=== PATIENT | female | born 1945 | race African-American/Black ===

== ENCOUNTER 2019-03-15 16:20 | Emergency (ER) | payer OTHER ==
[~2019-03-15] VITALS: Ht 165.1 cm; Wt 91.0 kg
[2019-03-15 17:18] LABS: BASOPHILS % 0.9 % (0.0-2.0); EOSINOPHILS % 6.2 % (0.0-5.0); HEMATOCRIT. 36.6 % (36.0-48.0); HEMOGLOBIN. 11.8 g/dL (12.0-16.0); LYMPHOCYTES % 40.7 % (20.0-50.0); MEAN CORPUSCULAR HEMOGLOBIN 28.7 pg (28.0-32.0); MEAN CORPUSCULAR VOLUME 89.5 fL (81.0-99.0); MEAN PLATELET VOLUME 8.1 fl (7.4-10.4); MONOCYTES % 7.4 % (2.0-8.0); NEUTROPHILS % 44.8 % (40.0-76.0); PLATELET 349 x1000/uL (130-400); RED CELL DISTRIBUTION WIDTH 15.2 % (11.6-14.6)
[2019-03-15 17:19] LABS: CHLORIDE 107 mEq/L (98-107)
[2019-03-15 17:46] LABS: CLARITY URINE CLOUDY (CLEAR); COLOR URINE YELLOW (YELLOW); KETONES URINE NEGATIVE (NEGATIVE); LEUKOCYTE ESTERASE URINE NEGATIVE (NEGATIVE); NITRITE URINE NEGATIVE (NEGATIVE); OCCULT BLOOD URINE NEGATIVE (NEGATIVE); PROTEIN URINE TRACE (NEGATIVE); SPECIFIC GRAVITY URINE 1.019 (1.005-1.030); UROBILINOGEN URINE 0.2 E.U./dL (0.2-1.0)
[2019-03-15] MEDS ORDERED: SODIUM CHLORIDE 0.9% 1,000 ML IV NR (18:10)
[2019-03-15 19:58] VITALS: BP 168/77
== END 2019-03-15 20:03 | disposition short-term general hospital (02) ==
LOC: ER 16:20 → CANBEDREQ 21:01
DX: R55 Syncope and collapse (principal); E11.9 Type 2 diabetes mellitus without complications; I10 Essential (primary) hypertension; E78.00 Pure hypercholesterolemia, unspecified; Z88.2 Allergy status to sulfonamides
CPT/HCPCS: 36415; 71045; 78582; 80053; 81003; 83880; 84484; 85025; 85379; 93005; 99285; A9540; A9558

== ENCOUNTER 2021-12-21 13:37 | Inpatient (IN) | payer OTHER, MEDICARE ==
[2021-12-21] VITALS (20 sets, daily range): BP systolic 119–194; BP diastolic 31–74
[~2021-12-21] VITALS: Ht 165.1 cm; Wt 98.9 kg
[2021-12-21] MEDS ORDERED: ONDANSETRON HCL 4MG/2ML INJ IV STA (13:38)
[2021-12-21] MEDS ORDERED: NICARDIPINE 40MG/200ML PREMIX 200 ML IV STA (14:06)
[2021-12-21] MEDS ORDERED: LEVETIRACETAM 500MG PREMIX 100 ML IV ONE (14:15)
[2021-12-21] MEDS ORDERED: DEXAMETHASONE 10 MG/ML VIAL IV ONE (14:15)
[2021-12-21] MEDS ORDERED: IOHEXOL-350 100 ML BOTTLE ONE (14:21)
[2021-12-21] MEDS ORDERED: MANNITOL 12.5G (25%) VIAL 50ML IV ONE (14:30)
[2021-12-21] MEDS ORDERED: ETOMIDATE 2MG/ML 10ML VIAL IV ONE (14:45)
[2021-12-21] MEDS ORDERED: FENTANYL CITRATE/PF 50MCG/ML 2ML VIAL IV ONE (14:45)
[2021-12-21] MEDS ORDERED: SUCCINYLCHOLINE CHLORIDE 200MG/10ML IV ONE (14:45)
[2021-12-21] MEDS ORDERED: PROPOFOL 10MG/ML 100ML 100 ML IV SCH (15:00)
[2021-12-21] MEDS ORDERED: FENTANYL 2500MCG/250ML PMX 250 ML IV PRN ×2 (15:00→15:30)
[2021-12-21] MEDS ORDERED: GENTAMICIN SULF 40MG/ML 2ML VIAL ONE (15:28)
[2021-12-21] MEDS ORDERED: LIDOCAINE HCL/EPINEPHRINE 1%-EPI 1:100,000 30 ML VIAL INFIL ONE ×2 (15:28→15:29)
[2021-12-21] MEDS ORDERED: THROMBIN (BOVINE) 5000 UNITS/VIAL TOP ONE (15:29)
[2021-12-21] MEDS ORDERED: BACITRACIN 15GM TUBE TOP ONE (15:29)
[2021-12-21] MEDS ORDERED: MANNITOL 20% 0 ML IV ONE (15:30)
[2021-12-21 15:33] LABS: BASOPHILS % 0.8 % (0.0-2.0); EOSINOPHILS % 0.9 % (0.0-5.0); HEMATOCRIT. 40.8 % (36.0-48.0); HEMOGLOBIN. 13.6 g/dL (12.0-16.0); LYMPHOCYTES % 21.9 % (20.0-50.0); MEAN CORPUSCULAR HEMOGLOBIN 29.3 pg (28.0-32.0); MEAN PLATELET VOLUME 8.2 fl (7.4-10.4); NEUTROPHILS % 72.4 % (40.0-76.0); PLATELET 286 x1000/uL (130-400); RED BLOOD CELL COUNT 4.63 mill/uL (4.2-5.4); RED CELL DISTRIBUTION WIDTH 14.7 % (11.6-14.6)
[2021-12-21 15:41] LABS: CHLORIDE 103 mEq/L (98-107)
[2021-12-21 15:45] LABS: ETHANOL BLOOD < 10 mg/dL
[2021-12-21] MEDS ORDERED: CEFAZOLIN SODIUM 1000MG/VIAL ONE (16:18)
[2021-12-21] MEDS ORDERED: DEXAMETHASONE 4MG/ML 1ML VIAL ONE (16:18)
[2021-12-21] MEDS ORDERED: HYDRALAZINE 20MG/ML VIAL ONE ×5 (16:24→18:07)
[2021-12-21] MEDS ORDERED: LABETALOL HCL 5MG/ML VIAL 20ML IV ONE (16:27)
[2021-12-21] MEDS ORDERED: HYDROMORPHONE HCL/PF 2MG/ML (OR) ONE ×2 (16:28→17:47)
[2021-12-21] MEDS ORDERED: ROCURONIUM BROMIDE 10MG/ML VIAL 5ML IV ONE (16:41)
[2021-12-21] MEDS ORDERED: ALBUMIN HUMAN 25GM/100ML (25%) IV ONE (16:52)
[2021-12-21] MEDS ORDERED: CALCIUM CHLORIDE 1GM/10ML SYR IV ONE (17:08)
[2021-12-21] MEDS ORDERED: NICARDIPINE 100 MG in SODIUM CHLORIDE 0.9% 60 ML IV PRN (17:30)
[2021-12-21] MEDS ORDERED: MEPERIDINE HCL/PF 25MG/ML CPJ IV PRN (18:00)
[2021-12-21] MEDS ORDERED: LABETALOL 5MG/ML SYR 20 MG/4 ML SYRINGE IV PRN (18:00)
[2021-12-21] MEDS ORDERED: HYDROMORPHONE HCL/PF 2MG/ML CPJ IV PRN (18:00)
[2021-12-21] MEDS ORDERED: ONDANSETRON HCL 4MG/2ML INJ IV PRN ×2 (18:00→22:00)
[2021-12-21] MEDS ORDERED: NALOXONE HCL 0.4MG/ML VIAL IV PRN (18:15)
[2021-12-21] MEDS: NICARDIPINE 100 MG in SODIUM CHLORIDE 0.9% 60 ML IV PRN (20:39)
[2021-12-21] MEDS: DEXT 5%/LACTATED RINGERS 1,000 ML IV SCH (20:40)
[2021-12-21] MEDS ORDERED: LEVETIRACETAM 500 MG in SODIUM CHLORIDE 0.9% 100 ML IV SCH (20:45)
[2021-12-21] MEDS ORDERED: CEFAZOLIN 1000MG PREMIX 50 ML IV SCH (21:00)
[2021-12-21] MEDS: PROPOFOL 10MG/ML 100ML 100 ML IV PRN (21:22)
[2021-12-21] MEDS: MORPHINE SULFATE 4 MG/ML CPJ (NOT FOR IM USE) IV PRN (21:45)
[2021-12-21 21:54] LABS: BG BASE EXCESS -4.8 mmol/L (-2.0-2.0); BG CARBOXYHEMOGLOBIN 0.3 % (0.5-1.5); BG DEOXYHEMOGLOBIN 0.9 % (0.0-5.0); BG FRACTION INSPIRED OXYGEN 100; BG HCO3 ACT 18.1 mmol/L (22.0-26.0); BG METHEMOGLOBIN 0.3 % (0.0-1.5); BG OXYGEN SATURATION 99.1 % (92.0-98.5); BG OXYHEMOGLOBIN 98.5 % (94.0-97.0); BG PCO2 26.7 mmHg (35.0-45.0); BG PH 7.448 (7.350-7.450); BG PO2 186.8 mmHg (75.0-100.0); BG SAMPLE SITE ALINE; BG TOTAL HEMOGLOBIN 10.5 g/dL (12.0-18.0); BG VENT MODE VENT - AC
[2021-12-21] MEDS ORDERED: ACETAMINOPHEN 650MG SUPP PR PRN (22:00)
[2021-12-21] MEDS ORDERED: DEXT 5%/0.45% NACL 1000ML 1,000 ML IV SCH (22:00)
[2021-12-21] MEDS ORDERED: DEXTROSE 50% WATER 50ML SYRINGE IV PRN ×2 (22:15→22:45)
[2021-12-21] MEDS: LEVETIRACETAM 500MG PREMIX 100 ML IV SCH (23:03)
[2021-12-21] MEDS: BLOOD SUGAR DIAGNOSTIC STRIP TEST SCH (23:22)
[2021-12-21] MEDS: INSULIN LISPRO 100 UNITS/ML SUBCUT SCH (23:25)
[2021-12-22] VITALS (103 sets, daily range): BP systolic 63–193; BP diastolic 29–82
[2021-12-22] MEDS: PROPOFOL 10MG/ML 100ML 100 ML IV PRN ×6 (00:56→21:31)
[2021-12-22] MEDS: NICARDIPINE 100 MG in SODIUM CHLORIDE 0.9% 60 ML IV PRN ×3 (01:00→19:19)
[2021-12-22] MEDS: MORPHINE SULFATE 4 MG/ML CPJ (NOT FOR IM USE) IV PRN ×3 (01:27→19:17)
[2021-12-22] MEDS: BLOOD SUGAR DIAGNOSTIC STRIP TEST SCH ×3 (05:36→17:58)
[2021-12-22] MEDS: CEFAZOLIN 1000MG PREMIX 50 ML IV SCH ×3 (05:41→21:30)
[2021-12-22] MEDS: INSULIN LISPRO 100 UNITS/ML SUBCUT SCH ×2 (05:42→11:25)
[2021-12-22 05:55] LABS: BASOPHILS % 0.1 % (0.0-2.0); HEMATOCRIT. 29.8 % (36.0-48.0); HEMOGLOBIN. 9.9 g/dL (12.0-16.0); LYMPHOCYTES % 10.3 % (20.0-50.0); MEAN CORPUSCULAR HEMOGLOBIN 29.4 pg (28.0-32.0); MEAN CORPUSCULAR VOLUME 88.2 fL (81.0-99.0); MEAN PLATELET VOLUME 8.3 fl (7.4-10.4); MONOCYTES % 2.9 % (2.0-8.0); NEUTROPHILS % 86.7 % (40.0-76.0); PLATELET 227 x1000/uL (130-400); RED BLOOD CELL COUNT 3.38 mill/uL (4.2-5.4); RED CELL DISTRIBUTION WIDTH 14.2 % (11.6-14.6)
[2021-12-22 06:25] LABS: CHLORIDE 104 mEq/L (98-107)
[2021-12-22] MEDS: LEVETIRACETAM 500MG PREMIX 100 ML IV SCH (08:42)
[2021-12-22] MEDS: DEXAMETHASONE 4MG/ML 1ML VIAL IV SCH ×3 (08:43→18:02)
[2021-12-22 08:55] LABS: BG BASE EXCESS -3.7 mmol/L (-2.0-2.0); BG CARBOXYHEMOGLOBIN 0.3 % (0.5-1.5); BG DEOXYHEMOGLOBIN 1.8 % (0.0-5.0); BG FRACTION INSPIRED OXYGEN 60; BG HCO3 ACT 19.8 mmol/L (22.0-26.0); BG METHEMOGLOBIN 0.3 % (0.0-1.5); BG OXYGEN SATURATION 98.2 % (92.0-98.5); BG OXYHEMOGLOBIN 97.6 % (94.0-97.0); BG PCO2 30.8 mmHg (35.0-45.0); BG PH 7.427 (7.350-7.450); BG PO2 115.1 mmHg (75.0-100.0); BG SAMPLE SITE RIGHT RADIAL; BG TOTAL HEMOGLOBIN 10.2 g/dL (12.0-18.0); BG VENT MODE VENT - AC
[2021-12-22] MEDS ORDERED: PANTOPRAZOLE SODIUM 40 MG/VIAL IV SCH (10:00)
[2021-12-22] MEDS: PANTOPRAZOLE SODIUM 40 MG/VIAL IV SCH (10:00)
[2021-12-22] MEDS: DEXT 5%/LACTATED RINGERS 1,000 ML IV SCH ×2 (10:10→16:30)
[2021-12-22] MEDS ORDERED: DEXTROSE 50% WATER 50ML SYRINGE IV PRN (12:45)
[2021-12-22] MEDS: INSULIN GLARGINE 100 UNITS/ML SUBCUT SCH (12:48)
[2021-12-22] MEDS ORDERED: LIDOCAINE HCL/PF 1% 10 MG/ML 5ML VIAL ONE (13:58)
[2021-12-22] MEDS ORDERED: PHENYTOIN SODIUM 500 MG in SODIUM CHLORIDE 0.9% 50 ML IV NR (14:00)
[2021-12-22 16:18] LABS: CLARITY URINE CLOUDY (CLEAR); COLOR URINE YELLOW (YELLOW); KETONES URINE NEGATIVE (NEGATIVE); LEUKOCYTE ESTERASE URINE 1+ (NEGATIVE); NITRITE URINE NEGATIVE (NEGATIVE); OCCULT BLOOD URINE NEGATIVE (NEGATIVE); PROTEIN URINE TRACE (NEGATIVE); UROBILINOGEN URINE 0.2 E.U./dL (0.2-1.0)
[2021-12-22] MEDS ORDERED: INSULIN LISPRO 100 UNITS/ML SUBCUT SCH ×2 (17:00)
[2021-12-22] MEDS ORDERED: HYDRALAZINE 10 MG XX SCH (17:15)
[2021-12-22 19:00] LABS: *AMPHETAMINES SCREEN URINE NEGATIVE (NEGATIVE); *BENZODIAZEPINES SCREEN URINE NEGATIVE (NEGATIVE); CANNABINOID URINE SCREEN NEGATIVE (NEGATIVE); OPIATES URINE SCREEN PRESUMTIVE POSITIVE (NEGATIVE); PHENCYCLIDINE URINE SCREEN NEGATIVE (NEGATIVE)
[2021-12-22 19:01] LABS: *COCAINE SCREEN URINE NEGATIVE (NEGATIVE); METHADONE URINE SCREEN NEGATIVE (NEGATIVE)
[2021-12-22] MEDS ORDERED: LEVETIRACETAM 500 MG in SODIUM CHLORIDE 0.9% 100 ML IV SCH (21:00)
[2021-12-22] MEDS ORDERED: LEVETIRACETAM 500MG PREMIX 100 ML IV SCH (21:00)
[2021-12-22 21:04] LABS: PROTHROMBIN TIME 10.5 sec (9.6-11.0)
[2021-12-22] MEDS: LEVETIRACETAM 1000MG PREMIX 100 ML IV SCH (21:30)
[2021-12-22 21:33] LABS: *BARBITURATES SCREEN URINE NEGATIVE (NEGATIVE)
[2021-12-22] MEDS: PHENYTOIN SODIUM 1,000 MG in SODIUM CHLORIDE 0.9% 100 ML IV SCH (22:43)
[2021-12-23] VITALS (100 sets, daily range): BP systolic 60–183; BP diastolic 41–70
[2021-12-23] MEDS: BLOOD SUGAR DIAGNOSTIC STRIP TEST SCH ×4 (00:18→17:07)
[2021-12-23] MEDS: DEXAMETHASONE 4MG/ML 1ML VIAL IV SCH ×4 (00:22→17:25)
[2021-12-23] MEDS: INSULIN LISPRO 100 UNITS/ML SUBCUT SCH ×4 (00:23→17:26)
[2021-12-23] MEDS: PROPOFOL 10MG/ML 100ML 100 ML IV PRN ×7 (00:59→21:51)
[2021-12-23] MEDS: DEXT 5%/LACTATED RINGERS 1,000 ML IV SCH (04:23)
[2021-12-23 05:27] LABS: HEMATOCRIT. 23.2 % (36.0-48.0); HEMOGLOBIN. 7.6 g/dL (12.0-16.0); MEAN CORPUSCULAR HEMOGLOBIN 28.7 pg (28.0-32.0); MEAN CORPUSCULAR VOLUME 87.8 fL (81.0-99.0); MEAN PLATELET VOLUME 8.4 fl (7.4-10.4); PLATELET 188 x1000/uL (130-400); RED BLOOD CELL COUNT 2.64 mill/uL (4.2-5.4); RED CELL DISTRIBUTION WIDTH 14.2 % (11.6-14.6)
[2021-12-23] MEDS: CEFAZOLIN 1000MG PREMIX 50 ML IV SCH ×3 (05:37→21:52)
[2021-12-23 07:57] LABS: BG BASE EXCESS -7.9 mmol/L (-2.0-2.0); BG CARBOXYHEMOGLOBIN 0.3 % (0.5-1.5); BG DEOXYHEMOGLOBIN 3.2 % (0.0-5.0); BG HCO3 ACT 15.5 mmol/L (22.0-26.0); BG METHEMOGLOBIN 0.3 % (0.0-1.5); BG OXYGEN SATURATION 96.8 % (92.0-98.5); BG OXYHEMOGLOBIN 96.2 % (94.0-97.0); BG PCO2 24.5 mmHg (35.0-45.0); BG PH 7.418 (7.350-7.450); BG PO2 91.9 mmHg (75.0-100.0); BG SAMPLE SITE ALINE; BG TOTAL HEMOGLOBIN 8.5 g/dL (12.0-18.0); BG VENT MODE VENT - AC
[2021-12-23] MEDS: LEVETIRACETAM 1000MG PREMIX 100 ML IV SCH ×2 (08:20→21:50)
[2021-12-23] MEDS: PANTOPRAZOLE SODIUM 40 MG/VIAL IV SCH (08:20)
[2021-12-23 08:30] LABS: PLATELET ESTIMATE NORMAL
[2021-12-23] MEDS ORDERED: BISACODYL 10MG SUPP PR PRN (10:15)
[2021-12-23] MEDS: DEXT 5%/0.9% NACL 1,000 ML IV SCH ×2 (10:59→20:39)
[2021-12-23] MEDS: PHENYTOIN SODIUM 1,000 MG in SODIUM CHLORIDE 0.9% 100 ML IV SCH ×2 (10:59→22:44)
[2021-12-23] MEDS: INSULIN GLARGINE 100 UNITS/ML SUBCUT SCH (11:00)
[2021-12-23] MEDS: PIPERACILLIN/TAZOBACTAM 3.375 G in DEXTROSE 5% WATER 50 ML IV SCH ×2 (11:35→20:39)
[2021-12-23] MEDS ORDERED: MAGNESIUM 1 G PREMIX 100 ML IV NR (12:00)
[2021-12-24] VITALS (98 sets, daily range): BP systolic 108–179; BP diastolic 36–75
[2021-12-24] MEDS: DEXAMETHASONE 4MG/ML 1ML VIAL IV SCH ×5 (00:08→22:50)
[2021-12-24] MEDS: BLOOD SUGAR DIAGNOSTIC STRIP TEST SCH ×5 (00:08→23:07)
[2021-12-24] MEDS: INSULIN LISPRO 100 UNITS/ML SUBCUT SCH ×4 (00:08→17:56)
[2021-12-24] MEDS: PROPOFOL 10MG/ML 100ML 100 ML IV PRN ×4 (02:04→12:13)
[2021-12-24] MEDS: PIPERACILLIN/TAZOBACTAM 3.375 G in DEXTROSE 5% WATER 50 ML IV SCH ×3 (03:58→20:58)
[2021-12-24] MEDS: CEFAZOLIN 1000MG PREMIX 50 ML IV SCH ×3 (05:30→20:57)
[2021-12-24] MEDS: DEXT 5%/0.9% NACL 1,000 ML IV SCH ×2 (05:31→15:56)
[2021-12-24 05:37] LABS: HEMOGLOBIN. 9.9 g/dL (12.0-16.0); MEAN CORPUSCULAR VOLUME 88.2 fL (81.0-99.0); MEAN PLATELET VOLUME 8.6 fl (7.4-10.4); PLATELET 235 x1000/uL (130-400); RED CELL DISTRIBUTION WIDTH 14.5 % (11.6-14.6)
[2021-12-24 06:00] LABS: CHLORIDE 108 mEq/L (98-107)
[2021-12-24 06:08] LABS: PHOSPHORUS 5.2 mg/dL (2.5-4.9)
[2021-12-24] MEDS: MORPHINE SULFATE 4 MG/ML CPJ (NOT FOR IM USE) IV PRN ×2 (06:26→13:51)
[2021-12-24] MEDS: NICARDIPINE 100 MG in SODIUM CHLORIDE 0.9% 60 ML IV PRN ×2 (06:53→14:20)
[2021-12-24] MEDS: PANTOPRAZOLE SODIUM 40 MG/VIAL IV SCH (08:25)
[2021-12-24] MEDS: LEVETIRACETAM 1000MG PREMIX 100 ML IV SCH ×2 (08:25→20:58)
[2021-12-24 08:51] LABS: BG BASE EXCESS -8.7 mmol/L (-2.0-2.0); BG CARBOXYHEMOGLOBIN 0.1 % (0.5-1.5); BG DEOXYHEMOGLOBIN 5.2 % (0.0-5.0); BG FRACTION INSPIRED OXYGEN 30; BG HCO3 ACT 15.8 mmol/L (22.0-26.0); BG METHEMOGLOBIN 0.3 % (0.0-1.5); BG OXYGEN SATURATION 94.8 % (92.0-98.5); BG OXYHEMOGLOBIN 94.4 % (94.0-97.0); BG PCO2 29.3 mmHg (35.0-45.0); BG PO2 78.7 mmHg (75.0-100.0); BG SAMPLE SITE RIGHT RADIAL; BG TOTAL HEMOGLOBIN 10.2 g/dL (12.0-18.0); BG VENT MODE VENT - AC
[2021-12-24] MEDS: INSULIN GLARGINE 100 UNITS/ML SUBCUT SCH (11:04)
[2021-12-24] MEDS ORDERED: PROPOFOL 10MG/ML 100ML 100 ML IV PRN (13:30)
[2021-12-24] MEDS ORDERED: HYDRALAZINE HCL 25MG TABLET PO PRN (15:00)
[2021-12-24] MEDS: HYDRALAZINE 20MG/ML VIAL IV PRN ×2 (15:25→22:50)
[2021-12-24 15:44] LABS: PLATELET ESTIMATE NORMAL
[2021-12-24] MEDS ORDERED: FENTANYL CITRATE/PF 2,500 MCG in SODIUM CHLORIDE 0.9% 200 ML IV PRN (15:45)
[2021-12-24] MEDS: FENTANYL 2500MCG/250ML PMX 250 ML IV PRN (16:27)
[2021-12-25] VITALS (98 sets, daily range): BP systolic 103–185; BP diastolic 40–97
[2021-12-25] MEDS: NICARDIPINE 100 MG in SODIUM CHLORIDE 0.9% 60 ML IV PRN ×4 (00:33→18:05)
[2021-12-25] MEDS: PROPOFOL 10MG/ML 100ML 100 ML IV PRN ×5 (00:34→23:53)
[2021-12-25] MEDS: DEXT 5%/0.9% NACL 1,000 ML IV SCH ×2 (01:38→09:11)
[2021-12-25] MEDS: MORPHINE SULFATE 4 MG/ML CPJ (NOT FOR IM USE) IV PRN (02:45)
[2021-12-25] MEDS: PIPERACILLIN/TAZOBACTAM 3.375 G in DEXTROSE 5% WATER 50 ML IV SCH ×3 (05:19→21:53)
[2021-12-25] MEDS: CEFAZOLIN 1000MG PREMIX 50 ML IV SCH ×2 (05:20→14:11)
[2021-12-25] MEDS: BLOOD SUGAR DIAGNOSTIC STRIP TEST SCH ×4 (05:45→23:37)
[2021-12-25 06:01] LABS: HEMATOCRIT. 29.2 % (36.0-48.0); HEMOGLOBIN. 9.7 g/dL (12.0-16.0); MEAN CORPUSCULAR HEMOGLOBIN 29.1 pg (28.0-32.0); MEAN CORPUSCULAR VOLUME 87.8 fL (81.0-99.0); MEAN PLATELET VOLUME 8.3 fl (7.4-10.4); PLATELET 266 x1000/uL (130-400); RED BLOOD CELL COUNT 3.33 mill/uL (4.2-5.4); RED CELL DISTRIBUTION WIDTH 14.5 % (11.6-14.6)
[2021-12-25 06:07] LABS: PHOSPHORUS 5.1 mg/dL (2.5-4.9)
[2021-12-25] MEDS: INSULIN LISPRO 100 UNITS/ML SUBCUT SCH ×5 (06:07→23:47)
[2021-12-25 07:24] LABS: PLATELET ESTIMATE NORMAL
[2021-12-25] MEDS: LEVETIRACETAM 1000MG PREMIX 100 ML IV SCH ×2 (09:10→21:50)
[2021-12-25 09:11] LABS: BG BASE EXCESS -7.7 mmol/L (-2.0-2.0); BG CARBOXYHEMOGLOBIN 0.1 % (0.5-1.5); BG DEOXYHEMOGLOBIN 6.5 % (0.0-5.0); BG FRACTION INSPIRED OXYGEN 40; BG HCO3 ACT 17.5 mmol/L (22.0-26.0); BG METHEMOGLOBIN 0.3 % (0.0-1.5); BG OXYGEN SATURATION 93.5 % (92.0-98.5); BG OXYHEMOGLOBIN 93.1 % (94.0-97.0); BG PCO2 34.6 mmHg (35.0-45.0); BG PH 7.323 (7.350-7.450); BG PO2 75.7 mmHg (75.0-100.0); BG SAMPLE SITE LEFT RADIAL; BG TOTAL HEMOGLOBIN 9.5 g/dL (12.0-18.0); BG VENT MODE VENT - AC
[2021-12-25] MEDS: PANTOPRAZOLE SODIUM 40 MG/VIAL IV SCH (09:11)
[2021-12-25] MEDS: FENTANYL 2500MCG/250ML PMX 250 ML IV PRN (10:14)
[2021-12-25] MEDS: INSULIN GLARGINE 100 UNITS/ML SUBCUT SCH (10:40)
[2021-12-25] MEDS: CITRIC ACID/SODIUM CITRATE SOLN 30ML UDC NG SCH ×3 (10:40→17:57)
[2021-12-26] VITALS (78 sets, daily range): BP systolic 102–152; BP diastolic 46–63
[2021-12-26] MEDS ORDERED: FENTANYL CITRATE 2,500 MCG in SODIUM CHLORIDE 0.9% 200 ML IV PRN ×2
[2021-12-26] MEDS: HYDRALAZINE 20MG/ML VIAL IV PRN (00:39)
[2021-12-26] MEDS: NICARDIPINE 100 MG in SODIUM CHLORIDE 0.9% 60 ML IV PRN ×3 (02:29→18:05)
[2021-12-26] MEDS: BLOOD SUGAR DIAGNOSTIC STRIP TEST SCH ×3 (05:53→17:08)
[2021-12-26] MEDS: INSULIN LISPRO 100 UNITS/ML SUBCUT SCH ×3 (05:55→18:06)
[2021-12-26] MEDS: PROPOFOL 10MG/ML 100ML 100 ML IV PRN ×2 (05:55→09:55)
[2021-12-26] MEDS: PIPERACILLIN/TAZOBACTAM 3.375 G in DEXTROSE 5% WATER 50 ML IV SCH ×3 (05:57→21:00)
[2021-12-26 07:07] LABS: BASOPHILS % 0.2 % (0.0-2.0); EOSINOPHILS % 0.3 % (0.0-5.0); HEMATOCRIT. 28.2 % (36.0-48.0); HEMOGLOBIN. 9.4 g/dL (12.0-16.0); LYMPHOCYTES % 15.9 % (20.0-50.0); MEAN CORPUSCULAR HEMOGLOBIN 28.8 pg (28.0-32.0); MEAN CORPUSCULAR VOLUME 86.1 fL (81.0-99.0); MEAN PLATELET VOLUME 8.7 fl (7.4-10.4); MONOCYTES % 7.5 % (2.0-8.0); NEUTROPHILS % 76.1 % (40.0-76.0); PLATELET 279 x1000/uL (130-400); RED BLOOD CELL COUNT 3.27 mill/uL (4.2-5.4); RED CELL DISTRIBUTION WIDTH 14.3 % (11.6-14.6)
[2021-12-26 07:09] LABS: PHOSPHORUS 5.4 mg/dL (2.5-4.9)
[2021-12-26 07:47] LABS: BG BASE EXCESS -7.9 mmol/L (-2.0-2.0); BG CARBOXYHEMOGLOBIN 0.3 % (0.5-1.5); BG DEOXYHEMOGLOBIN 9.9 % (0.0-5.0); BG HCO3 ACT 17.4 mmol/L (22.0-26.0); BG METHEMOGLOBIN 0.3 % (0.0-1.5); BG OXYHEMOGLOBIN 89.5 % (94.0-97.0); BG PCO2 34.7 mmHg (35.0-45.0); BG PH 7.318 (7.350-7.450); BG PO2 64.1 mmHg (75.0-100.0); BG SAMPLE SITE LEFT RADIAL; BG VENT MODE VENT - AC
[2021-12-26] MEDS: CITRIC ACID/SODIUM CITRATE SOLN 30ML UDC NG SCH ×3 (08:43→16:28)
[2021-12-26] MEDS: PANTOPRAZOLE SODIUM 40 MG/VIAL IV SCH (08:43)
[2021-12-26] MEDS: HYDRALAZINE HCL 25MG TABLET NG SCH ×3 (08:44→21:00)
[2021-12-26] MEDS: AMLODIPINE 5MG TABLET NG SCH ×2 (08:44→20:49)
[2021-12-26] MEDS: LEVETIRACETAM 1000MG PREMIX 100 ML IV SCH ×2 (08:44→20:49)
[2021-12-26] MEDS ORDERED: PROPOFOL 10MG/ML 100ML 100 ML IV PRN (09:45)
[2021-12-26] MEDS ORDERED: LACTULOSE 20G/30ML UDC PO PRN (09:45)
[2021-12-26] MEDS: INSULIN GLARGINE 100 UNITS/ML SUBCUT SCH (09:58)
[2021-12-26] MEDS ORDERED: LACTULOSE 20G/30ML UDC PO NR (10:00)
[2021-12-26] MEDS: KCL 20MEQ/100ML PREMIX 100 ML IV SCH ×2 (14:25→16:27)
[2021-12-26] MEDS: LABETALOL 5MG/ML SYR 20 MG/4 ML SYRINGE IV PRN (22:18)
[2021-12-27] VITALS (51 sets, daily range): BP systolic 129–158; BP diastolic 46–65
[2021-12-27] MEDS: BLOOD SUGAR DIAGNOSTIC STRIP TEST SCH ×5 (00:37→23:47)
[2021-12-27] MEDS: INSULIN LISPRO 100 UNITS/ML SUBCUT SCH ×5 (00:44→23:49)
[2021-12-27] MEDS: NICARDIPINE 100 MG in SODIUM CHLORIDE 0.9% 60 ML IV PRN ×4 (02:15→23:48)
[2021-12-27 05:41] LABS: BASOPHILS % 0.2 % (0.0-2.0); HEMOGLOBIN. 9.8 g/dL (12.0-16.0); LYMPHOCYTES % 12.8 % (20.0-50.0); MEAN CORPUSCULAR HEMOGLOBIN 28.1 pg (28.0-32.0); MEAN CORPUSCULAR VOLUME 86.1 fL (81.0-99.0); MEAN PLATELET VOLUME 8.5 fl (7.4-10.4); MONOCYTES % 7.2 % (2.0-8.0); NEUTROPHILS % 78.8 % (40.0-76.0); PLATELET 298 x1000/uL (130-400); RED BLOOD CELL COUNT 3.48 mill/uL (4.2-5.4); RED CELL DISTRIBUTION WIDTH 14.6 % (11.6-14.6)
[2021-12-27 06:02] LABS: PHOSPHORUS 4.2 mg/dL (2.5-4.9)
[2021-12-27] MEDS: HYDRALAZINE HCL 25MG TABLET NG SCH ×2 (06:38→13:18)
[2021-12-27] MEDS: PIPERACILLIN/TAZOBACTAM 3.375 G in DEXTROSE 5% WATER 50 ML IV SCH ×3 (06:54→21:23)
[2021-12-27] MEDS: AMLODIPINE 5MG TABLET NG SCH ×2 (08:13→21:23)
[2021-12-27] MEDS: PANTOPRAZOLE SODIUM 40 MG/VIAL IV SCH (08:13)
[2021-12-27] MEDS: CITRIC ACID/SODIUM CITRATE SOLN 30ML UDC NG SCH (08:13)
[2021-12-27] MEDS: LEVETIRACETAM 1000MG PREMIX 100 ML IV SCH ×2 (08:14→21:23)
[2021-12-27] MEDS: HYDRALAZINE 20MG/ML VIAL IV PRN ×3 (09:05→23:48)
[2021-12-27] MEDS: INSULIN GLARGINE 100 UNITS/ML SUBCUT SCH (09:16)
[2021-12-27 10:02] LABS: BG CARBOXYHEMOGLOBIN 0.3 % (0.5-1.5); BG DEOXYHEMOGLOBIN 1.3 % (0.0-5.0); BG FRACTION INSPIRED OXYGEN 60; BG HCO3 ACT 22.2 mmol/L (22.0-26.0); BG METHEMOGLOBIN 0.3 % (0.0-1.5); BG OXYGEN SATURATION 98.7 % (92.0-98.5); BG OXYHEMOGLOBIN 98.1 % (94.0-97.0); BG PCO2 31.5 mmHg (35.0-45.0); BG PH 7.466 (7.350-7.450); BG PO2 163.5 mmHg (75.0-100.0); BG SAMPLE SITE LEFT RADIAL; BG TOTAL HEMOGLOBIN 9.5 g/dL (12.0-18.0); BG VENT MODE VENT - AC
[2021-12-27] MEDS: DEXTROSE 5% WATER 1,000 ML IV SCH (12:11)
[2021-12-27] MEDS: LABETALOL 5MG/ML SYR 20 MG/4 ML SYRINGE IV PRN ×2 (12:50→19:13)
[2021-12-27] MEDS: KCL 20MEQ/100ML PREMIX 100 ML IV SCH ×3 (13:19→18:10)
[2021-12-27] MEDS: HYDRALAZINE HCL 100MG TABLET NG SCH (21:23)
[2021-12-28] VITALS (77 sets, daily range): BP systolic 117–160; BP diastolic 42–74
[2021-12-28] MEDS: ACETAMINOPHEN 650MG/20.3ML UDC NG PRN ×4 (00:12→23:47)
[2021-12-28] MEDS: LABETALOL 5MG/ML SYR 20 MG/4 ML SYRINGE IV PRN ×2 (04:05→15:21)
[2021-12-28] MEDS: BLOOD SUGAR DIAGNOSTIC STRIP TEST SCH ×4 (05:36→23:48)
[2021-12-28] MEDS: HYDRALAZINE HCL 100MG TABLET NG SCH ×3 (05:36→21:09)
[2021-12-28] MEDS: PIPERACILLIN/TAZOBACTAM 3.375 G in DEXTROSE 5% WATER 50 ML IV SCH (05:36)
[2021-12-28] MEDS: DEXTROSE 5% WATER 1,000 ML IV SCH ×3 (05:37→21:15)
[2021-12-28] MEDS: INSULIN LISPRO 100 UNITS/ML SUBCUT SCH ×4 (05:38→23:48)
[2021-12-28 06:09] LABS: BASOPHILS % 0.2 % (0.0-2.0); EOSINOPHILS % 0.6 % (0.0-5.0); HEMATOCRIT. 27.9 % (36.0-48.0); HEMOGLOBIN. 9.3 g/dL (12.0-16.0); LYMPHOCYTES % 13.3 % (20.0-50.0); MEAN CORPUSCULAR HEMOGLOBIN 28.5 pg (28.0-32.0); MEAN CORPUSCULAR VOLUME 85.6 fL (81.0-99.0); MEAN PLATELET VOLUME 8.7 fl (7.4-10.4); MONOCYTES % 5.9 % (2.0-8.0); PLATELET 308 x1000/uL (130-400); RED BLOOD CELL COUNT 3.26 mill/uL (4.2-5.4); RED CELL DISTRIBUTION WIDTH 14.4 % (11.6-14.6)
[2021-12-28 06:25] LABS: CHLORIDE 123 mEq/L (98-107)
[2021-12-28 06:31] LABS: PHOSPHORUS 2.5 mg/dL (2.5-4.9)
[2021-12-28] MEDS: NICARDIPINE 100 MG in SODIUM CHLORIDE 0.9% 60 ML IV PRN ×3 (06:43→20:39)
[2021-12-28] MEDS: PANTOPRAZOLE SODIUM 40 MG/VIAL IV SCH (08:26)
[2021-12-28] MEDS: AMLODIPINE 5MG TABLET NG SCH ×2 (08:27→20:38)
[2021-12-28] MEDS: LEVETIRACETAM 1000MG PREMIX 100 ML IV SCH ×2 (08:27→20:38)
[2021-12-28] MEDS: INSULIN GLARGINE 100 UNITS/ML SUBCUT SCH ×2 (10:01→21:14)
[2021-12-28 10:11] LABS: BG BASE EXCESS -2.3 mmol/L (-2.0-2.0); BG CARBOXYHEMOGLOBIN 0.3 % (0.5-1.5); BG DEOXYHEMOGLOBIN 3.2 % (0.0-5.0); BG FRACTION INSPIRED OXYGEN 60; BG HCO3 ACT 20.7 mmol/L (22.0-26.0); BG METHEMOGLOBIN 0.3 % (0.0-1.5); BG OXYGEN SATURATION 96.8 % (92.0-98.5); BG OXYHEMOGLOBIN 96.2 % (94.0-97.0); BG PCO2 29.5 mmHg (35.0-45.0); BG PH 7.465 (7.350-7.450); BG PO2 92.6 mmHg (75.0-100.0); BG SAMPLE SITE LEFT RADIAL; BG TOTAL HEMOGLOBIN 9.6 g/dL (12.0-18.0); BG VENT MODE VENT - AC
[2021-12-28] MEDS ORDERED: POTASSIUM CHLORIDE 20MEQ/PACKET PO SCH (12:00)
[2021-12-28] MEDS: CLONIDINE 0.1MG TABLET PO SCH ×2 (13:02→21:14)
[2021-12-28] MEDS ORDERED: POTASSIUM CHLORIDE 20MEQ/PACKET PO NR (14:00)
[2021-12-28 16:31] LABS: SODIUM URINE RANDOM 29 mEq/L
[2021-12-28] MEDS: HYDRALAZINE 20MG/ML VIAL IV PRN (22:28)
[2021-12-29] VITALS (78 sets, daily range): BP systolic 105–167; BP diastolic 35–81
[2021-12-29] MEDS: LABETALOL 5MG/ML SYR 20 MG/4 ML SYRINGE IV PRN ×2 (02:35→23:40)
[2021-12-29] MEDS: BLOOD SUGAR DIAGNOSTIC STRIP TEST SCH ×4 (05:31→23:32)
[2021-12-29] MEDS: CLONIDINE 0.1MG TABLET PO SCH (05:32)
[2021-12-29] MEDS: HYDRALAZINE HCL 100MG TABLET NG SCH ×3 (05:32→21:22)
[2021-12-29] MEDS: INSULIN LISPRO 100 UNITS/ML SUBCUT SCH ×4 (05:33→23:46)
[2021-12-29] MEDS: DEXTROSE 5% WATER 1,000 ML IV SCH ×3 (05:33→22:04)
[2021-12-29] MEDS: NICARDIPINE 100 MG in SODIUM CHLORIDE 0.9% 60 ML IV PRN ×2 (06:42→14:26)
[2021-12-29] MEDS: PANTOPRAZOLE SODIUM 40 MG/VIAL IV SCH (08:41)
[2021-12-29] MEDS: LEVETIRACETAM 1000MG PREMIX 100 ML IV SCH ×2 (08:42→21:00)
[2021-12-29] MEDS: AMLODIPINE 5MG TABLET NG SCH ×2 (08:42→20:20)
[2021-12-29] MEDS: INSULIN GLARGINE 100 UNITS/ML SUBCUT SCH ×2 (09:10→21:25)
[2021-12-29 09:37] LABS: BG BASE EXCESS -4.1 mmol/L (-2.0-2.0); BG CARBOXYHEMOGLOBIN 0.6 % (0.5-1.5); BG DEOXYHEMOGLOBIN 4.7 % (0.0-5.0); BG FRACTION INSPIRED OXYGEN 40; BG HCO3 ACT 18.4 mmol/L (22.0-26.0); BG METHEMOGLOBIN 0.2 % (0.0-1.5); BG OXYGEN SATURATION 95.3 % (92.0-98.5); BG OXYHEMOGLOBIN 94.5 % (94.0-97.0); BG PCO2 26.1 mmHg (35.0-45.0); BG PH 7.466 (7.350-7.450); BG PO2 73.6 mmHg (75.0-100.0); BG SAMPLE SITE RIGHT BRACHIAL; BG TOTAL HEMOGLOBIN 10.9 g/dL (12.0-18.0); BG VENT MODE VENT - AC
[2021-12-29] MEDS: HYDRALAZINE 20MG/ML VIAL IV PRN (12:25)
[2021-12-29 12:55] LABS: PHOSPHORUS 2.1 mg/dL (2.5-4.9)
[2021-12-29] MEDS: CLONIDINE 0.2MG TABLET PO SCH ×2 (14:10→21:22)
[2021-12-29] MEDS: ACETAMINOPHEN 650MG/20.3ML UDC NG PRN (23:41)
[2021-12-30] VITALS (63 sets, daily range): BP systolic 128–179; BP diastolic 54–82
[2021-12-30] MEDS: NICARDIPINE 100 MG in SODIUM CHLORIDE 0.9% 60 ML IV PRN ×3 (04:04→18:48)
[2021-12-30] MEDS: LEVETIRACETAM 1000MG PREMIX 100 ML IV SCH (05:00)
[2021-12-30] MEDS: BLOOD SUGAR DIAGNOSTIC STRIP TEST SCH ×4 (05:04→23:59)
[2021-12-30] MEDS: HYDRALAZINE HCL 100MG TABLET NG SCH ×3 (05:24→21:59)
[2021-12-30] MEDS: CLONIDINE 0.2MG TABLET PO SCH ×3 (05:24→21:58)
[2021-12-30] MEDS: INSULIN LISPRO 100 UNITS/ML SUBCUT SCH ×3 (05:25→17:38)
[2021-12-30] MEDS: LABETALOL 5MG/ML SYR 20 MG/4 ML SYRINGE IV PRN (05:48)
[2021-12-30 05:49] LABS: CHLORIDE 113 mEq/L (98-107)
[2021-12-30 05:51] LABS: BASOPHILS % 0.5 % (0.0-2.0); EOSINOPHILS % 2.3 % (0.0-5.0); HEMATOCRIT. 27.1 % (36.0-48.0); HEMOGLOBIN. 9.1 g/dL (12.0-16.0); MEAN CORPUSCULAR HEMOGLOBIN 28.8 pg (28.0-32.0); MEAN CORPUSCULAR VOLUME 86.1 fL (81.0-99.0); MEAN PLATELET VOLUME 8.9 fl (7.4-10.4); MONOCYTES % 6.1 % (2.0-8.0); NEUTROPHILS % 80.1 % (40.0-76.0); PLATELET 323 x1000/uL (130-400); RED BLOOD CELL COUNT 3.15 mill/uL (4.2-5.4); RED CELL DISTRIBUTION WIDTH 14.5 % (11.6-14.6)
[2021-12-30 05:56] LABS: PHOSPHORUS 2.7 mg/dL (2.5-4.9)
[2021-12-30] MEDS: DEXTROSE 5% WATER 1,000 ML IV SCH (06:44)
[2021-12-30 07:53] LABS: BG BASE EXCESS -0.5 mmol/L (-2.0-2.0); BG CARBOXYHEMOGLOBIN 0.4 % (0.5-1.5); BG DEOXYHEMOGLOBIN 2.8 % (0.0-5.0); BG HCO3 ACT 22.2 mmol/L (22.0-26.0); BG METHEMOGLOBIN 0.3 % (0.0-1.5); BG OXYGEN SATURATION 97.2 % (92.0-98.5); BG OXYHEMOGLOBIN 96.5 % (94.0-97.0); BG PCO2 29.5 mmHg (35.0-45.0); BG PH 7.494 (7.350-7.450); BG PO2 89.7 mmHg (75.0-100.0); BG SAMPLE SITE LEFT RADIAL; BG TOTAL HEMOGLOBIN 9.8 g/dL (12.0-18.0); BG VENT MODE VENT - AC
[2021-12-30] MEDS: PANTOPRAZOLE SODIUM 40 MG/VIAL IV SCH (08:56)
[2021-12-30] MEDS: AMLODIPINE 5MG TABLET NG SCH ×2 (08:57→21:58)
[2021-12-30] MEDS: INSULIN GLARGINE 100 UNITS/ML SUBCUT SCH ×2 (10:15→21:59)
[2021-12-30] MEDS: HYDRALAZINE 20MG/ML VIAL IV PRN ×2 (10:22→18:02)
[2021-12-31] VITALS (71 sets, daily range): BP systolic 101–166; BP diastolic 52–75
[2021-12-31] MEDS: INSULIN LISPRO 100 UNITS/ML SUBCUT SCH ×4 (00:21→17:45)
[2021-12-31] MEDS: LABETALOL 5MG/ML SYR 20 MG/4 ML SYRINGE IV PRN (02:42)
[2021-12-31] MEDS: NICARDIPINE 100 MG in SODIUM CHLORIDE 0.9% 60 ML IV PRN ×4 (03:23→21:39)
[2021-12-31] MEDS: DEXTROSE 5% WATER 1,000 ML IV SCH ×2 (04:05→08:20)
[2021-12-31 06:00] LABS: BASOPHILS % 1.6 % (0.0-2.0); EOSINOPHILS % 3.8 % (0.0-5.0); HEMATOCRIT. 27.7 % (36.0-48.0); HEMOGLOBIN. 9.1 g/dL (12.0-16.0); LYMPHOCYTES % 9.7 % (20.0-50.0); MEAN CORPUSCULAR HEMOGLOBIN 28.4 pg (28.0-32.0); MEAN CORPUSCULAR VOLUME 86.4 fL (81.0-99.0); MEAN PLATELET VOLUME 9.2 fl (7.4-10.4); MONOCYTES % 4.9 % (2.0-8.0); PLATELET 357 x1000/uL (130-400); RED CELL DISTRIBUTION WIDTH 14.5 % (11.6-14.6)
[2021-12-31] MEDS: CLONIDINE 0.2MG TABLET PO SCH (06:12)
[2021-12-31] MEDS: HYDRALAZINE HCL 25MG TABLET PO PRN (06:12)
[2021-12-31 06:15] LABS: PHOSPHORUS 2.9 mg/dL (2.5-4.9)
[2021-12-31] MEDS: BLOOD SUGAR DIAGNOSTIC STRIP TEST SCH ×3 (06:31→17:41)
[2021-12-31] MEDS: HYDRALAZINE HCL 100MG TABLET NG SCH ×3 (06:32→21:37)
[2021-12-31] MEDS: PANTOPRAZOLE SODIUM 40 MG/VIAL IV SCH (08:20)
[2021-12-31] MEDS: AMLODIPINE 5MG TABLET NG SCH ×2 (08:20→21:37)
[2021-12-31] MEDS: LEVETIRACETAM 1000MG PREMIX 100 ML IV SCH ×2 (08:20→21:38)
[2021-12-31] MEDS: INSULIN GLARGINE 100 UNITS/ML SUBCUT SCH ×2 (10:31→21:36)
[2021-12-31] MEDS: CLONIDINE 0.3MG TABLET PO SCH ×2 (14:25→21:37)
[2022-01-01] VITALS (88 sets, daily range): BP systolic 98–210; BP diastolic 34–92
[2022-01-01] MEDS: HYDRALAZINE HCL 25MG TABLET PO PRN (04:36)
[2022-01-01] MEDS: NICARDIPINE 100 MG in SODIUM CHLORIDE 0.9% 60 ML IV PRN ×3 (04:37→21:44)
[2022-01-01] MEDS: HYDRALAZINE 20MG/ML VIAL IV PRN (05:42)
[2022-01-01] MEDS: INSULIN LISPRO 100 UNITS/ML SUBCUT SCH ×4 (05:43→17:59)
[2022-01-01] MEDS: BLOOD SUGAR DIAGNOSTIC STRIP TEST SCH ×4 (05:43→17:50)
[2022-01-01] MEDS: HYDRALAZINE HCL 100MG TABLET NG SCH ×3 (05:43→21:45)
[2022-01-01] MEDS: CLONIDINE 0.3MG TABLET PO SCH ×3 (05:43→21:45)
[2022-01-01 06:18] LABS: PHOSPHORUS 2.4 mg/dL (2.5-4.9)
[2022-01-01 06:19] LABS: BASOPHILS % 0.5 % (0.0-2.0); EOSINOPHILS % 1.9 % (0.0-5.0); HEMATOCRIT. 26.7 % (36.0-48.0); LYMPHOCYTES % 13.6 % (20.0-50.0); MEAN CORPUSCULAR HEMOGLOBIN 28.8 pg (28.0-32.0); MEAN CORPUSCULAR VOLUME 85.6 fL (81.0-99.0); MEAN PLATELET VOLUME 9.1 fl (7.4-10.4); MONOCYTES % 4.6 % (2.0-8.0); NEUTROPHILS % 79.4 % (40.0-76.0); PLATELET 354 x1000/uL (130-400); RED BLOOD CELL COUNT 3.12 mill/uL (4.2-5.4); RED CELL DISTRIBUTION WIDTH 14.5 % (11.6-14.6)
[2022-01-01] MEDS: PANTOPRAZOLE SODIUM 40 MG/VIAL IV SCH (09:04)
[2022-01-01] MEDS: AMLODIPINE 5MG TABLET NG SCH ×2 (09:04→21:45)
[2022-01-01] MEDS: LEVETIRACETAM 1000MG PREMIX 100 ML IV SCH ×2 (09:04→21:46)
[2022-01-01] MEDS: IPRATROPIUM/ALBUTEROL 0.5-3(2.5)MG/3ML NEB HHN SCH ×4 (09:20→20:29)
[2022-01-01] MEDS: INSULIN GLARGINE 100 UNITS/ML SUBCUT SCH ×2 (09:21→21:47)
[2022-01-01] MEDS ORDERED: SODIUM PHOS,M-BASIC-D-BASIC 15 MM in DEXT 5% WATER 245 ML IV NR (14:00)
[2022-01-01] MEDS: ACETYLCYSTEINE 100MG/ML 10% VIAL 4ML INH SCH (16:18)
[2022-01-01] MEDS: CEFEPIME 2,000 MG in DEXT 5% WATER 100 ML IV SCH (16:46)
[2022-01-01 16:55] LABS: INR 0.9; PROTHROMBIN TIME 10.2 sec (9.6-11.0)
[2022-01-01] MEDS: NYSTATIN 100,000 UNITS/ML 5ML UDC SSW SCH (18:34)
[2022-01-02] VITALS (95 sets, daily range): BP systolic 105–202; BP diastolic 44–81
[2022-01-02] MEDS: IPRATROPIUM/ALBUTEROL 0.5-3(2.5)MG/3ML NEB HHN SCH ×6 (00:29→20:15)
[2022-01-02] MEDS: ACETYLCYSTEINE 100MG/ML 10% VIAL 4ML INH SCH ×3 (00:35→16:41)
[2022-01-02] MEDS: CLONIDINE 0.3MG TABLET PO SCH ×3 (05:41→22:05)
[2022-01-02] MEDS: HYDRALAZINE HCL 100MG TABLET NG SCH ×3 (05:41→22:05)
[2022-01-02] MEDS: INSULIN LISPRO 100 UNITS/ML SUBCUT SCH ×4 (05:42→17:14)
[2022-01-02] MEDS: CEFEPIME 2,000 MG in DEXT 5% WATER 100 ML IV SCH ×2 (05:42→17:07)
[2022-01-02] MEDS: BLOOD SUGAR DIAGNOSTIC STRIP TEST SCH ×4 (05:42→17:12)
[2022-01-02 06:00] LABS: BASOPHILS % 0.6 % (0.0-2.0); EOSINOPHILS % 0.9 % (0.0-5.0); HEMATOCRIT. 25.5 % (36.0-48.0); HEMOGLOBIN. 8.5 g/dL (12.0-16.0); LYMPHOCYTES % 10.8 % (20.0-50.0); MEAN CORPUSCULAR HEMOGLOBIN 28.8 pg (28.0-32.0); MEAN CORPUSCULAR VOLUME 86.1 fL (81.0-99.0); MEAN PLATELET VOLUME 8.8 fl (7.4-10.4); MONOCYTES % 4.5 % (2.0-8.0); NEUTROPHILS % 83.2 % (40.0-76.0); PLATELET 381 x1000/uL (130-400); RED BLOOD CELL COUNT 2.97 mill/uL (4.2-5.4); RED CELL DISTRIBUTION WIDTH 14.3 % (11.6-14.6)
[2022-01-02] MEDS: HYDRALAZINE 20MG/ML VIAL IV PRN (07:46)
[2022-01-02] MEDS: NICARDIPINE 100 MG in SODIUM CHLORIDE 0.9% 60 ML IV PRN ×2 (08:05→15:08)
[2022-01-02] MEDS: AMLODIPINE 5MG TABLET NG SCH ×2 (09:09→22:05)
[2022-01-02] MEDS: LEVETIRACETAM 1000MG PREMIX 100 ML IV SCH ×2 (09:09→22:06)
[2022-01-02] MEDS: PANTOPRAZOLE SODIUM 40 MG/VIAL IV SCH (09:09)
[2022-01-02] MEDS: INSULIN GLARGINE 100 UNITS/ML SUBCUT SCH ×2 (09:14→22:07)
[2022-01-02] MEDS: NYSTATIN 100,000 UNITS/ML 5ML UDC SSW SCH ×2 (11:46→17:14)
[2022-01-03] VITALS (95 sets, daily range): BP systolic 101–168; BP diastolic 41–96
[2022-01-03] MEDS: IPRATROPIUM/ALBUTEROL 0.5-3(2.5)MG/3ML NEB HHN SCH ×6 (00:24→21:56)
[2022-01-03] MEDS: ACETYLCYSTEINE 100MG/ML 10% VIAL 4ML INH SCH ×3 (00:24→16:33)
[2022-01-03] MEDS: BLOOD SUGAR DIAGNOSTIC STRIP TEST SCH ×5 (00:25→23:37)
[2022-01-03] MEDS: INSULIN LISPRO 100 UNITS/ML SUBCUT SCH ×5 (00:25→23:39)
[2022-01-03 06:16] LABS: BASOPHILS % 0.8 % (0.0-2.0); EOSINOPHILS % 1.9 % (0.0-5.0); HEMATOCRIT. 24.5 % (36.0-48.0); HEMOGLOBIN. 8.2 g/dL (12.0-16.0); LYMPHOCYTES % 13.5 % (20.0-50.0); MEAN CORPUSCULAR HEMOGLOBIN 29.1 pg (28.0-32.0); MEAN CORPUSCULAR VOLUME 87.3 fL (81.0-99.0); NEUTROPHILS % 78.8 % (40.0-76.0); RED CELL DISTRIBUTION WIDTH 14.8 % (11.6-14.6)
[2022-01-03] MEDS: HYDRALAZINE HCL 100MG TABLET NG SCH ×3 (06:17→21:47)
[2022-01-03] MEDS: CLONIDINE 0.3MG TABLET PO SCH ×3 (06:17→21:46)
[2022-01-03] MEDS: CEFEPIME 2,000 MG in DEXT 5% WATER 100 ML IV SCH ×2 (06:17→16:58)
[2022-01-03 06:20] LABS: PHOSPHORUS 3.2 mg/dL (2.5-4.9)
[2022-01-03 07:22] LABS: PLATELET 401 x1000/uL (130-400)
[2022-01-03] MEDS: AMLODIPINE 5MG TABLET NG SCH ×2 (09:27→20:32)
[2022-01-03] MEDS: PANTOPRAZOLE SODIUM 40 MG/VIAL IV SCH (09:27)
[2022-01-03] MEDS: LEVETIRACETAM 1000MG PREMIX 100 ML IV SCH ×2 (09:27→20:31)
[2022-01-03] MEDS: INSULIN GLARGINE 100 UNITS/ML SUBCUT SCH ×2 (10:15→21:46)
[2022-01-04] VITALS (88 sets, daily range): BP systolic 102–156; BP diastolic 38–66
[2022-01-04] MEDS: ACETYLCYSTEINE 100MG/ML 10% VIAL 4ML INH SCH ×3 (02:28→16:02)
[2022-01-04] MEDS: IPRATROPIUM/ALBUTEROL 0.5-3(2.5)MG/3ML NEB HHN SCH ×6 (02:29→20:07)
[2022-01-04] MEDS: CEFEPIME 2,000 MG in DEXT 5% WATER 100 ML IV SCH ×2 (04:23→16:45)
[2022-01-04] MEDS: CLONIDINE 0.3MG TABLET PO SCH ×3 (05:10→22:12)
[2022-01-04] MEDS: HYDRALAZINE HCL 100MG TABLET NG SCH ×3 (05:11→22:12)
[2022-01-04] MEDS: INSULIN LISPRO 100 UNITS/ML SUBCUT SCH ×4 (05:11→23:56)
[2022-01-04] MEDS: BLOOD SUGAR DIAGNOSTIC STRIP TEST SCH ×3 (05:11→16:35)
[2022-01-04 05:41] LABS: BASOPHILS % 0.5 % (0.0-2.0); EOSINOPHILS % 2.2 % (0.0-5.0); HEMATOCRIT. 25.9 % (36.0-48.0); HEMOGLOBIN. 8.3 g/dL (12.0-16.0); LYMPHOCYTES % 12.3 % (20.0-50.0); MEAN CORPUSCULAR HEMOGLOBIN 28.3 pg (28.0-32.0); MEAN CORPUSCULAR VOLUME 87.9 fL (81.0-99.0); MEAN PLATELET VOLUME 8.9 fl (7.4-10.4); MONOCYTES % 5.9 % (2.0-8.0); NEUTROPHILS % 79.1 % (40.0-76.0); PLATELET 431 x1000/uL (130-400); RED BLOOD CELL COUNT 2.95 mill/uL (4.2-5.4); RED CELL DISTRIBUTION WIDTH 14.5 % (11.6-14.6)
[2022-01-04 05:43] LABS: CHLORIDE 121 mEq/L (98-107)
[2022-01-04 05:50] LABS: PHOSPHORUS 2.6 mg/dL (2.5-4.9)
[2022-01-04 07:16] LABS: BG BASE EXCESS -0.5 mmol/L (-2.0-2.0); BG CARBOXYHEMOGLOBIN 0.3 % (0.5-1.5); BG DEOXYHEMOGLOBIN 1.4 % (0.0-5.0); BG FRACTION INSPIRED OXYGEN 45; BG OXYGEN SATURATION 98.6 % (92.0-98.5); BG OXYHEMOGLOBIN 98.3 % (94.0-97.0); BG PCO2 27.6 mmHg (35.0-45.0); BG PEEP (cmH2O) 0 cmH2O; BG PH 7.519 (7.350-7.450); BG PO2 148.4 mmHg (75.0-100.0); BG SAMPLE SITE LEFT RADIAL; BG TOTAL HEMOGLOBIN 7.6 g/dL (12.0-18.0); BG VENT MODE AC/VC
[2022-01-04] MEDS: AMLODIPINE 5MG TABLET NG SCH ×2 (08:16→20:07)
[2022-01-04] MEDS: PANTOPRAZOLE SODIUM 40 MG/VIAL IV SCH (08:16)
[2022-01-04] MEDS: LEVETIRACETAM 1000MG PREMIX 100 ML IV SCH ×2 (08:16→20:07)
[2022-01-04] MEDS: INSULIN GLARGINE 100 UNITS/ML SUBCUT SCH ×2 (09:12→22:11)
[2022-01-04] MEDS: NYSTATIN 100,000 UNITS/ML 5ML UDC SSW SCH ×3 (12:48→23:56)
[2022-01-05] VITALS (68 sets, daily range): BP systolic 102–167; BP diastolic 42–70
[2022-01-05] MEDS: IPRATROPIUM/ALBUTEROL 0.5-3(2.5)MG/3ML NEB HHN SCH ×6 (00:19→22:09)
[2022-01-05] MEDS: ACETYLCYSTEINE 100MG/ML 10% VIAL 4ML INH SCH ×3 (00:19→15:43)
[2022-01-05] MEDS: CEFEPIME 2,000 MG in DEXT 5% WATER 100 ML IV SCH ×2 (04:37→17:10)
[2022-01-05] MEDS: INSULIN LISPRO 100 UNITS/ML SUBCUT SCH ×4 (05:11→23:59)
[2022-01-05] MEDS: HYDRALAZINE HCL 100MG TABLET NG SCH ×3 (05:11→21:28)
[2022-01-05] MEDS: NYSTATIN 100,000 UNITS/ML 5ML UDC SSW SCH ×3 (05:11→17:10)
[2022-01-05] MEDS: BLOOD SUGAR DIAGNOSTIC STRIP TEST SCH ×5 (05:11→23:58)
[2022-01-05] MEDS: CLONIDINE 0.3MG TABLET PO SCH ×3 (05:12→21:27)
[2022-01-05 05:40] LABS: BASOPHILS % 0.8 % (0.0-2.0); HEMATOCRIT. 23.5 % (36.0-48.0); LYMPHOCYTES % 15.6 % (20.0-50.0); MEAN CORPUSCULAR HEMOGLOBIN 29.6 pg (28.0-32.0); MEAN PLATELET VOLUME 8.7 fl (7.4-10.4); MONOCYTES % 5.4 % (2.0-8.0); NEUTROPHILS % 75.2 % (40.0-76.0); PLATELET 447 x1000/uL (130-400); RED BLOOD CELL COUNT 2.71 mill/uL (4.2-5.4); RED CELL DISTRIBUTION WIDTH 14.6 % (11.6-14.6)
[2022-01-05 06:04] LABS: PHOSPHORUS 2.7 mg/dL (2.5-4.9)
[2022-01-05] MEDS: PANTOPRAZOLE SODIUM 40 MG/VIAL IV SCH (08:28)
[2022-01-05] MEDS: LEVETIRACETAM 1000MG PREMIX 100 ML IV SCH ×2 (08:28→21:29)
[2022-01-05] MEDS: AMLODIPINE 5MG TABLET NG SCH ×2 (08:28→21:28)
[2022-01-05] MEDS: INSULIN GLARGINE 100 UNITS/ML SUBCUT SCH ×2 (08:45→21:32)
[2022-01-05] MEDS: HYDRALAZINE 20MG/ML VIAL IV PRN (11:31)
[2022-01-06] VITALS (49 sets, daily range): BP systolic 74–159; BP diastolic 39–92
[2022-01-06] MEDS: IPRATROPIUM/ALBUTEROL 0.5-3(2.5)MG/3ML NEB HHN SCH ×6 (01:17→20:14)
[2022-01-06] MEDS: ACETYLCYSTEINE 100MG/ML 10% VIAL 4ML INH SCH ×2 (01:18→08:15)
[2022-01-06 05:27] LABS: BASOPHILS % 1.1 % (0.0-2.0); EOSINOPHILS % 4.1 % (0.0-5.0); HEMATOCRIT. 24.5 % (36.0-48.0); HEMOGLOBIN. 8.1 g/dL (12.0-16.0); LYMPHOCYTES % 13.4 % (20.0-50.0); MEAN CORPUSCULAR HEMOGLOBIN 28.9 pg (28.0-32.0); MEAN CORPUSCULAR VOLUME 87.7 fL (81.0-99.0); MONOCYTES % 3.8 % (2.0-8.0); NEUTROPHILS % 77.6 % (40.0-76.0); RED BLOOD CELL COUNT 2.79 mill/uL (4.2-5.4); RED CELL DISTRIBUTION WIDTH 14.6 % (11.6-14.6)
[2022-01-06] MEDS: HYDRALAZINE HCL 100MG TABLET NG SCH ×3 (05:35→22:00)
[2022-01-06] MEDS: CEFEPIME 2,000 MG in DEXT 5% WATER 100 ML IV SCH ×2 (05:35→17:59)
[2022-01-06] MEDS: CLONIDINE 0.3MG TABLET PO SCH ×3 (05:35→22:00)
[2022-01-06] MEDS: BLOOD SUGAR DIAGNOSTIC STRIP TEST SCH ×3 (05:35→17:59)
[2022-01-06] MEDS: NYSTATIN 100,000 UNITS/ML 5ML UDC SSW SCH ×4 (05:35→17:58)
[2022-01-06 05:46] LABS: CHLORIDE 119 mEq/L (98-107)
[2022-01-06 06:01] LABS: PHOSPHORUS 3.3 mg/dL (2.5-4.9)
[2022-01-06] MEDS: INSULIN LISPRO 100 UNITS/ML SUBCUT SCH ×3 (06:28→18:00)
[2022-01-06] MEDS: PANTOPRAZOLE SODIUM 40 MG/VIAL IV SCH (08:07)
[2022-01-06] MEDS: AMLODIPINE 5MG TABLET NG SCH ×2 (08:07→20:05)
[2022-01-06] MEDS: LEVETIRACETAM 1000MG PREMIX 100 ML IV SCH ×2 (08:07→20:03)
[2022-01-06] MEDS: INSULIN GLARGINE 100 UNITS/ML SUBCUT SCH ×2 (11:03→22:00)
[2022-01-06 11:26] LABS: MEAN PLATELET VOLUME 8.5 fl (7.4-10.4)
[2022-01-06 11:28] LABS: PLATELET 455 x1000/uL (130-400)
[2022-01-07] VITALS (61 sets, daily range): BP systolic 124–196; BP diastolic 55–99
[2022-01-07] MEDS: IPRATROPIUM/ALBUTEROL 0.5-3(2.5)MG/3ML NEB HHN SCH ×6 (00:09→20:33)
[2022-01-07] MEDS: INSULIN LISPRO 100 UNITS/ML SUBCUT SCH ×5 (00:25→23:49)
[2022-01-07 05:17] LABS: BASOPHILS % 0.9 % (0.0-2.0); EOSINOPHILS % 3.2 % (0.0-5.0); HEMATOCRIT. 24.1 % (36.0-48.0); LYMPHOCYTES % 13.7 % (20.0-50.0); MEAN CORPUSCULAR HEMOGLOBIN 28.8 pg (28.0-32.0); MEAN CORPUSCULAR VOLUME 86.5 fL (81.0-99.0); MEAN PLATELET VOLUME 8.3 fl (7.4-10.4); MONOCYTES % 4.5 % (2.0-8.0); NEUTROPHILS % 77.7 % (40.0-76.0); PLATELET 467 x1000/uL (130-400); RED BLOOD CELL COUNT 2.78 mill/uL (4.2-5.4); RED CELL DISTRIBUTION WIDTH 14.7 % (11.6-14.6)
[2022-01-07 05:27] LABS: CHLORIDE 117 mEq/L (98-107)
[2022-01-07 05:35] LABS: PHOSPHORUS 2.8 mg/dL (2.5-4.9)
[2022-01-07] MEDS: BLOOD SUGAR DIAGNOSTIC STRIP TEST SCH ×5 (05:59→23:50)
[2022-01-07] MEDS: HYDRALAZINE HCL 100MG TABLET NG SCH ×3 (06:00→21:54)
[2022-01-07] MEDS: CLONIDINE 0.3MG TABLET PO SCH ×3 (06:00→21:54)
[2022-01-07] MEDS: AMLODIPINE 5MG TABLET NG SCH ×2 (08:28→20:19)
[2022-01-07] MEDS: PANTOPRAZOLE SODIUM 40 MG/VIAL IV SCH (08:28)
[2022-01-07] MEDS: LABETALOL 5MG/ML SYR 20 MG/4 ML SYRINGE IV PRN ×2 (08:29→16:44)
[2022-01-07] MEDS: LEVETIRACETAM 1000MG PREMIX 100 ML IV SCH ×2 (08:42→20:18)
[2022-01-07] MEDS: INSULIN GLARGINE 100 UNITS/ML SUBCUT SCH ×2 (09:41→21:55)
[2022-01-07] MEDS: HYDRALAZINE 20MG/ML VIAL IV PRN (12:48)
[2022-01-07] MEDS: HYDRALAZINE HCL 25MG TABLET PO PRN ×2 (13:49→13:53)
[2022-01-08] VITALS (77 sets, daily range): BP systolic 66–188; BP diastolic 29–86
[2022-01-08] MEDS: IPRATROPIUM/ALBUTEROL 0.5-3(2.5)MG/3ML NEB HHN SCH ×4 (00:33→12:22)
[2022-01-08 05:55] LABS: EOSINOPHILS % 2.8 % (0.0-5.0); HEMATOCRIT. 25.2 % (36.0-48.0); HEMOGLOBIN. 8.3 g/dL (12.0-16.0); LYMPHOCYTES % 12.7 % (20.0-50.0); MEAN CORPUSCULAR HEMOGLOBIN 28.8 pg (28.0-32.0); MEAN PLATELET VOLUME 8.7 fl (7.4-10.4); MONOCYTES % 4.7 % (2.0-8.0); NEUTROPHILS % 78.8 % (40.0-76.0); PLATELET 452 x1000/uL (130-400); RED BLOOD CELL COUNT 2.89 mill/uL (4.2-5.4)
[2022-01-08 06:02] LABS: CHLORIDE 117 mEq/L (98-107)
[2022-01-08 06:15] LABS: PHOSPHORUS 3.1 mg/dL (2.5-4.9)
[2022-01-08] MEDS: BLOOD SUGAR DIAGNOSTIC STRIP TEST SCH ×2 (06:48→11:54)
[2022-01-08] MEDS: CLONIDINE 0.3MG TABLET PO SCH (06:48)
[2022-01-08] MEDS: HYDRALAZINE HCL 100MG TABLET NG SCH ×2 (06:48→13:51)
[2022-01-08] MEDS: INSULIN LISPRO 100 UNITS/ML SUBCUT SCH ×2 (06:59→11:57)
[2022-01-08] MEDS: AMLODIPINE 5MG TABLET NG SCH (08:52)
[2022-01-08] MEDS: LEVETIRACETAM 1000MG PREMIX 100 ML IV SCH (08:52)
[2022-01-08] MEDS: PANTOPRAZOLE SODIUM 40 MG/VIAL IV SCH (08:52)
[2022-01-08] MEDS: LABETALOL 5MG/ML SYR 20 MG/4 ML SYRINGE IV PRN (09:17)
[2022-01-08] MEDS: INSULIN GLARGINE 100 UNITS/ML SUBCUT SCH (10:35)
[2022-01-08] MEDS ORDERED: MORPHINE SULFATE 250 MG in DEXT 5% WATER 240 ML IV PRN (13:00)
[2022-01-08] MEDS: HYDRALAZINE HCL 25MG TABLET PO PRN (13:48)
[2022-01-08] MEDS: MORPHINE SULFATE 250 MG in DEXT 5% WATER 225 ML IV PRN (15:03)
[2022-01-09] MEDS: MORPHINE SULFATE 250 MG in DEXT 5% WATER 225 ML IV PRN (16:36)
[2022-01-10 04:00] VITALS: BP 145/145
[2022-01-10 08:00] VITALS: BP 154/51
[2022-01-10 12:00] VITALS: BP 120/51
[2022-01-10 16:00] VITALS: BP 142/51
[2022-01-10 20:00] VITALS: BP 155/51
[2022-01-10] MEDS: MORPHINE SULFATE 250 MG in DEXT 5% WATER 225 ML IV PRN (22:02)
[2022-01-11] VITALS: BP 98/56
[2022-01-11 04:00] VITALS: BP 170/58
[2022-01-11 08:00] VITALS: BP 127/69
[2022-01-11 12:00] VITALS: BP 124/49
[2022-01-11 16:00] VITALS: BP 139/51
[2022-01-11] MEDS: MORPHINE SULFATE 250 MG in DEXT 5% WATER 225 ML IV PRN (17:53)
[2022-01-11 20:00] VITALS: BP 165/55
[2022-01-12] VITALS: BP 166/63
[2022-01-12 04:00] VITALS: BP 169/61
[2022-01-12 08:00] VITALS: BP 166/51
[2022-01-12 12:00] VITALS: BP 172/57
[2022-01-12 16:00] VITALS: BP 171/68
[2022-01-12] MEDS: MORPHINE SULFATE 250 MG in DEXT 5% WATER 225 ML IV PRN (18:55)
[2022-01-12 20:00] VITALS: BP 144/46
[2022-01-13] VITALS: BP 141/40
[2022-01-13 04:00] VITALS: BP 104/68
[2022-01-13 08:00] VITALS: BP 164/57
[2022-01-13 12:00] VITALS: BP 160/64
[2022-01-13 16:00] VITALS: BP 172/63
[2022-01-13 20:00] VITALS: BP 129/52
[2022-01-14] VITALS: BP 128/65
[2022-01-14 04:00] VITALS: BP 130/81
[2022-01-14 08:00] VITALS: BP 175/108
[2022-01-14 12:00] VITALS: BP 199/62
[2022-01-14 16:00] VITALS: BP 180/65
== END 2022-01-14 18:31 | DRG 853 ==
LOC: ER 13:37 → EDBEDREQSVC 14:14 → EDBEDREQTM 14:14 → EDBEDREQ 14:14 → MICUSO 19:19 → ENRESERV 19:55 → CANBEDREQ 12-22 16:23 → 6EST 01-08 22:30 → UNDODISIN 01-14 18:31
PROVIDERS: ADMIT Hospitalist; ATTEND Hospitalist
PROC: 5A1955Z Respiratory Ventilation, Greater than 96 Consecutive Hours (ICD-10-PCS; principal; 2021-12-21)
PROC: 0NR007Z Replacement of Skull with Autologous Tissue Substitute, Open Approach (ICD-10-PCS; 2021-12-21)
PROC: 00U207Z Supplement Dura Mater with Autologous Tissue Substitute, Open Approach (ICD-10-PCS; 2021-12-21)
PROC: 00H002Z Insertion of Monitoring Device into Brain, Open Approach (ICD-10-PCS; 2021-12-21)
PROC: 009700Z Drainage of Cerebral Hemisphere with Drainage Device, Open Approach (ICD-10-PCS; 2021-12-21)
PROC: 4A103BD Monitoring of Intracranial Pressure, Percutaneous Approach (ICD-10-PCS; 2021-12-21)
PROC: 0BH17EZ Insertion of Endotracheal Airway into Trachea, Via Natural or Artificial Opening (ICD-10-PCS; 2021-12-21)
PROC: 02HV33Z Insertion of Infusion Device into Superior Vena Cava, Percutaneous Approach (ICD-10-PCS; 2021-12-22)
PROC: B548ZZA Ultrasonography of Superior Vena Cava, Guidance (ICD-10-PCS; 2021-12-22)
PROC: 4A10X4Z Monitoring of Central Nervous Electrical Activity, External Approach (ICD-10-PCS; 2022-01-02)
DX: A41.9 Sepsis, unspecified organism (principal); J96.01 Acute respiratory failure with hypoxia; I61.0 Nontraumatic intracerebral hemorrhage in hemisphere, subcortical; G93.6 Cerebral edema; J18.8 Other pneumonia, unspecified organism; N17.9 Acute kidney failure, unspecified; I16.1 Hypertensive emergency; G93.40 Encephalopathy, unspecified; C71.9 Malignant neoplasm of brain, unspecified; Z99.11 Dependence on respirator [ventilator] status; B37.0 Candidal stomatitis; Z20.822 Contact with and (suspected) exposure to COVID-19; G51.0 Bell's palsy; E78.5 Hyperlipidemia, unspecified; E11.65 Type 2 diabetes mellitus with hyperglycemia; M10.9 Gout, unspecified; D64.9 Anemia, unspecified; E78.1 Pure hyperglyceridemia; E66.9 Obesity, unspecified; Z66 Do not resuscitate; Z85.841 Personal history of malignant neoplasm of brain; Z82.49 Family history of ischemic heart disease and other diseases of the circulatory system; Z68.36 Body mass index [BMI] 36.0-36.9, adult; I10 Essential (primary) hypertension
CPT/HCPCS: 36415; 36600; 70496; 70498; 70551; 71045; 76770; 76937; 80048; 80053; 80185; 80305; 80320; 81003; 82270; 82375; 82550; 82805; 82962; 83036; 83735; 83935; 84100; 84145; 84300; 84478; 84484; 85018; 85025; 87426; 88305; 93005; 93970; 93971; 94002; 94003; 94640; 95816; 99285; A6261; C1713; C1725; C1769; C9113; J0360; J0690; J0692; J1100; J1165; J1170; J1580; J1815; J1953; J2150; J2270; J2405; J2543; J2704; J3010; J3480; J3490; J7040; J7042; J7050; J7060; J7070; J7120; J7608; P9047; Q9967; A4315; G0480